=== PATIENT | female | born 1985 | race Caucasian/White ===

== ENCOUNTER 2017-05-24 20:30 | Emergency (ER) | payer BC, MEDICAID ==
[~2017-05-24] VITALS: Ht 165.1 cm; Wt 103.6 kg
[~2017-05-24 20:30] MED LIST: CIPRO 500MG TA500 MG PO; EPINEPHRINE IJ; VENTOLIN0.09 MG
[2017-05-24 21:30] LABS: EOS # 0.2 (0.04-0.40); EOS % 1.9 % (1.0-5.0); HEMATOCRIT 32.6 % (37.0-47.0); HEMOGLOBIN 10.7 g/dL (12.5-16.0); LYMPH# 2.7 (1.50-4.00); MEAN CELL VOLUME 94 fl (78-100); MEAN CORPUSCULAR HEMOGLOBIN 31 pg (27-31); MEAN CORPUSCULAR HGB CONC 33 g/dL (33-37); MEAN PLATELET VOLUME 11.6 fl (7.4-10.4); MONO # 0.7 (0.20-0.80); NEU # 4.8 (1.40-6.50); PLATELET COUNT 251 K/mm3 (130-400); RED BLOOD COUNT 3.46 M/mm3 (4.10-5.30); RED CELL DISTRIBUTION WIDTH 12.1 % (11.5-14.5); WHITE BLOOD COUNT 8.4 K/mm3 (4.8-10.8)
[2017-05-24 21:40] LABS: BUN/CREATININE RATIO 20.5 (6.0-26.0); CALCIUM 8.9 mg/dL (8.4-10.2); POTASSIUM 3.4 mmol/L (3.6-5.0)
[2017-05-24 21:42] LABS: D-DIMER 2.13 mg/L FEU (0.15-0.50)
[2017-05-24 23:11] VITALS: BP 175/98
[2017-05-25] MEDS ORDERED: ADVIL 200MG TA200 MG PO (09:36)
[2017-05-25] MEDS ORDERED: POTASSIUM CHLO20 ME3 PO (10:12)
[2017-05-25] MEDS ORDERED: HCTZ 25MG25 MG PO (10:12)
== END 2017-05-24 23:11 | disposition home or self-care (01) ==
LOC: ED 20:30
PROVIDERS: Family Medicine
DX: O12.05 Gestational edema, complicating the puerperium (principal); J10.1 Influenza due to other identified influenza virus with other respiratory manifestations; O98.53 Other viral diseases complicating the puerperium; O99.345 Other mental disorders complicating the puerperium; F41.9 Anxiety disorder, unspecified; O90.89 Other complications of the puerperium, not elsewhere classified; R00.1 Bradycardia, unspecified; O99.89 Other specified diseases and conditions complicating pregnancy, childbirth and the puerperium

== ENCOUNTER 2017-05-25 09:22 | Emergency (ER) | payer BC, MEDICAID ==
[~2017-05-25] VITALS: Wt 99.8 kg
[2017-05-25] MEDS ORDERED: ADVIL 200MG TA200 MG PO (09:36)
[2017-05-25] MEDS ORDERED: POTASSIUM CHLO20 ME3 PO (10:12)
[2017-05-25] MEDS ORDERED: HCTZ 25MG25 MG PO (10:12)
[2017-05-25 11:47] VITALS: BP 155/89
== END 2017-05-25 11:47 | disposition home or self-care (01) ==
LOC: ED 09:22
DX: O14.95 Unspecified pre-eclampsia, complicating the puerperium (principal)
CPT/HCPCS: J0595; J1940

== ENCOUNTER 2017-05-28 18:33 | Emergency (ER) | payer BC, MEDICAID ==
[~2017-05-28 18:33] MED LIST changes: +ADVIL 200MG TA200 MG PO; +HCTZ 25MG25 MG PO; +POTASSIUM CHLO20 ME3 PO
[2017-05-28 19:39] LABS: EOS # 0.1 (0.04-0.40); EOS % 0.7 % (1.0-5.0); HEMATOCRIT 39.9 % (37.0-47.0); HEMOGLOBIN 13.5 g/dL (12.5-16.0); LYMPH# 2.7 (1.50-4.00); MEAN CELL VOLUME 91 fl (78-100); MEAN CORPUSCULAR HEMOGLOBIN 31 pg (27-31); MEAN CORPUSCULAR HGB CONC 34 g/dL (33-37); MEAN PLATELET VOLUME 11.2 fl (7.4-10.4); MONO # 1.1 (0.20-0.80); NEU # 12.4 (1.40-6.50); PLATELET COUNT 395 K/mm3 (130-400); RED BLOOD COUNT 4.37 M/mm3 (4.10-5.30); RED CELL DISTRIBUTION WIDTH 11.9 % (11.5-14.5); WHITE BLOOD COUNT 16.4 K/mm3 (4.8-10.8)
[2017-05-28 19:42] LABS: ALBUMIN 3.9 g/dL (3.5-5.0); BUN/CREATININE RATIO 22.4 (6.0-26.0); CALCIUM 9.1 mg/dL (8.4-10.2); POTASSIUM 3.2 mmol/L (3.6-5.0); TOTAL BILIRUBIN 0.6 mg/dL (0.2-1.3); TOTAL PROTEIN 7.8 g/dL (6.3-8.2)
[2017-05-28 20:23] LABS: URINE APPEARANCE HAZY; URINE BILIRUBIN NEGATIVE (NEGATIVE); URINE BLOOD TRACE (NEGATIVE); URINE COLOR YELLOW; URINE GLUCOSE NEGATIVE (NEGATIVE); URINE KETONE 1+ (NEGATIVE); URINE LEUKOCYTE ESTERASE 1+ (NEGATIVE); URINE NITRATE NEGATIVE (NEGATIVE); URINE PROTEIN(semi-quant) TRACE mg/dL (NEGATIVE); URINE UROBILINOGEN NORMAL (NORMAL)
[2017-05-28 21:22] VITALS: BP 138/84
== END 2017-05-28 21:22 | disposition short-term general hospital (02) ==
LOC: ED 18:33
PROVIDERS: Nurse Practitioner
DX: O99.89 Other specified diseases and conditions complicating pregnancy, childbirth and the puerperium (principal); R10.2 Pelvic and perineal pain; R10.31 Right lower quadrant pain; R10.32 Left lower quadrant pain; Z87.442 Personal history of urinary calculi; Z88.0 Allergy status to penicillin; Z88.2 Allergy status to sulfonamides; Z91.030 Bee allergy status
CPT/HCPCS: J7030; Q9967

== ENCOUNTER → 2017-05-31 | Outpatient (CLI) | payer BC, MEDICAID ==
[2017-05-28 21:22] VITALS: BP 138/84
[2017-05-31 12:18] LABS: HEMATOCRIT 42.7 % (37.0-47.0); HEMOGLOBIN 13.9 g/dL (12.5-16.0); MEAN CELL VOLUME 93 fl (78-100); MEAN CORPUSCULAR HEMOGLOBIN 30 pg (27-31); MEAN CORPUSCULAR HGB CONC 33 g/dL (33-37); MEAN PLATELET VOLUME 11.3 fl (7.4-10.4); PLATELET COUNT 432 K/mm3 (130-400); RED BLOOD COUNT 4.59 M/mm3 (4.10-5.30); RED CELL DISTRIBUTION WIDTH 12.1 % (11.5-14.5); WHITE BLOOD COUNT 8.9 K/mm3 (4.8-10.8)
[2017-05-31 12:29] LABS: LYMPHOCYTE 39 % (20-51); MONOCYTE 4 % (3-10); NEUTROPHILS 57 % (42-75)
[2017-05-31 12:37] LABS: ALBUMIN 4.3 g/dL (3.5-5.0); BUN/CREATININE RATIO 27.5 (6.0-26.0); CALCIUM 9.8 mg/dL (8.4-10.2); POTASSIUM 3.9 mmol/L (3.6-5.0); TOTAL BILIRUBIN 0.9 mg/dL (0.2-1.3); TOTAL PROTEIN 8.9 g/dL (6.3-8.2)
== END ==
LOC: LAB 11:52
PROVIDERS: Family Medicine
DX: N80.9 Endometriosis, unspecified (principal); E87.6 Hypokalemia; R09.89 Other specified symptoms and signs involving the circulatory and respiratory systems; Z88.0 Allergy status to penicillin; Z88.2 Allergy status to sulfonamides

== ENCOUNTER → 2019-02-05 | Outpatient (CLI) | payer BC | LOC: LAB 14:13 | DX: F41.0 Panic disorder [episodic paroxysmal anxiety] (principal) ==

== ENCOUNTER 2019-03-29 22:41 | Emergency (ER) | payer BC ==
[~2019-03-29] VITALS: Ht 165.1 cm; Wt 106.8 kg
[2019-03-29] MEDS ORDERED: KLONOPIN 0.5MG0.5 MG PO (22:54)
[2019-03-29] MEDS ORDERED: LEXAPRO 10MG10 MG PO (22:54)
[2019-03-29] MEDS ORDERED: DEXAMETHASONE2 M1 PO (23:28)
[2019-03-29 23:38] VITALS: BP 140/92
[2019-03-29] MEDS ORDERED: JENCYCLA0.35 MG PO (23:45)
== END 2019-03-29 23:38 | disposition home or self-care (01) ==
LOC: ED 22:41
DX: H05.223 Edema of bilateral orbit (principal); T78.49XA Other allergy, initial encounter; Z79.1 Long term (current) use of non-steroidal anti-inflammatories (NSAID)

== ENCOUNTER → 2022-05-03 | Outpatient (CLI) | payer BC ==
[~2022-05-03] MED LIST changes: +DEXAMETHASONE2 M1 PO; +JENCYCLA0.35 MG PO; +KLONOPIN 0.5MG0.5 MG PO; +LEXAPRO 10MG10 MG PO
[2022-05-03 18:08] LABS: HEMATOCRIT 41.8 % (37.0-47.0); HEMOGLOBIN 13.6 g/dL (12.5-16.0); MEAN PLATELET VOLUME 10.2 fl (7.4-10.4); RED BLOOD COUNT 4.43 M/mm3 (4.10-5.30); RED CELL DISTRIBUTION WIDTH 11.9 % (11.5-14.5); WHITE BLOOD COUNT 9.2 K/mm3 (4.8-10.8)
[2022-05-03 18:32] LABS: ALBUMIN 4.2 g/dL (3.5-5.0); POTASSIUM 4.1 mmol/L (3.5-5.1)
[2022-05-03 18:33] LABS: CALCIUM 9.8 mg/dL (8.3-10.5)
[2022-05-03 18:35] LABS: TOTAL PROTEIN 7.7 g/dL (6.4-8.3)
[2022-05-03 18:36] LABS: TOTAL BILIRUBIN 0.6 mg/dL (0.2-1.2)
== END ==
LOC: AMSURD 08:55
PROVIDERS: Family Medicine
DX: Z00.00 Encounter for general adult medical examination without abnormal findings (principal); Z13.1 Encounter for screening for diabetes mellitus; Z13.220 Encounter for screening for lipoid disorders; J45.909 Unspecified asthma, uncomplicated; E66.9 Obesity, unspecified; Z82.49 Family history of ischemic heart disease and other diseases of the circulatory system

== ENCOUNTER → 2022-06-13 | Outpatient (CLI) | payer BC ==
[~2022-06-13] MED LIST changes: +SINGULAIR PO; +ZESTRIL5 M1 PO; +ZYRTEC10 M3 PO; +[UNRECOGNIZED DRUG - OTHER]
== END ==
LOC: RAD 15:58
DX: E04.1 Nontoxic single thyroid nodule (principal); R00.2 Palpitations; Z82.49 Family history of ischemic heart disease and other diseases of the circulatory system

== ENCOUNTER 2022-06-18 14:12 | Emergency (ER) | payer BC ==
[~2022-06-18] VITALS: Ht 165.1 cm; Wt 120.3 kg
[~2022-06-18 14:12] MED LIST changes: -SINGULAIR PO; -ZESTRIL5 M1 PO; -ZYRTEC10 M3 PO; -[UNRECOGNIZED DRUG - OTHER]
[2022-06-18 14:52] LABS: BASO # 0.04 K/mm3 (0.02-0.10); EOS # 0.13 K/mm3 (0.04-0.40); EOS % 1.5 % (1.0-5.0); HEMATOCRIT 38.9 % (37.0-47.0); HEMOGLOBIN 12.9 g/dL (12.5-16.0); LYMPH# 2.22 K/mm3 (1.50-4.00); MEAN CELL VOLUME 94 fl (78-100); MEAN CORPUSCULAR HEMOGLOBIN 31 pg (27-31); MEAN CORPUSCULAR HGB CONC 33 g/dL (33-37); MEAN PLATELET VOLUME 10.1 fl (7.4-10.4); MONO # 0.56 K/mm3 (0.20-0.80); NEU # 5.49 K/mm3 (1.40-6.50); PLATELET COUNT 321 K/mm3 (130-400); RED BLOOD COUNT 4.16 M/mm3 (4.10-5.30); RED CELL DISTRIBUTION WIDTH 11.7 % (11.5-14.5); WHITE BLOOD COUNT 8.4 K/mm3 (4.8-10.8)
[2022-06-18 14:58] LABS: ALBUMIN 4.1 g/dL (3.5-5.0); POTASSIUM 4.2 mmol/L (3.5-5.1); SODIUM 139 mmol/L (136-145)
[2022-06-18 14:59] LABS: CALCIUM 9.4 mg/dL (8.3-10.5)
[2022-06-18 15:00] LABS: GLUCOSE 101 mg/dL (65-105); TOTAL PROTEIN 7.7 g/dL (6.4-8.3)
[2022-06-18] MEDS ORDERED: SINGULAIR PO (15:00)
[2022-06-18 15:01] LABS: CARBON DIOXIDE 23 mmol/L (22-29)
[2022-06-18] MEDS ORDERED: ZYRTEC10 M3 PO (15:01)
[2022-06-18 15:02] LABS: TOTAL BILIRUBIN 0.4 mg/dL (0.2-1.2)
[2022-06-18] MEDS ORDERED: [UNRECOGNIZED DRUG - OTHER] (15:04)
[2022-06-18 15:05] LABS: AST-SGOT 17 U/L (5-34)
[2022-06-18 15:07] LABS: ALT/SGPT 23 U/L (0-55)
[2022-06-18 15:26] LABS: TROPONIN-I < 0.030 ng/mL (<0.030)
[2022-06-18] MEDS ORDERED: ZESTRIL5 M1 PO (16:04)
[2022-06-18 16:19] VITALS: BP 149/83
== END 2022-06-18 16:20 | disposition home or self-care (01) ==
LOC: ED 14:12
PROVIDERS: Physician Assistant
DX: I10 Essential (primary) hypertension (principal); F41.9 Anxiety disorder, unspecified; Z79.899 Other long term (current) drug therapy; Z28.310 Unvaccinated for COVID-19

== ENCOUNTER → 2023-07-26 | Outpatient (REF) | payer BC ==
[~2023-07-26] MED LIST changes: +SINGULAIR PO; +ZESTRIL5 M1 PO; +ZYRTEC10 M3 PO; +[UNRECOGNIZED DRUG - OTHER]
== END ==
LOC: LAB 18:52
DX: N39.0 Urinary tract infection, site not specified (principal)

== ENCOUNTER → 2024-05-02 | Outpatient (CLI) | payer BC ==
[2024-05-02 10:28] LABS: URINE APPEARANCE CLOUDY (CLEAR); URINE COLOR DARK YELLOW (YELLOW); URINE PROTEIN(semi-quant) TRACE (NEGATIVE)
[2024-05-02 10:29] LABS: URINE BILIRUBIN 1+ (NEGATIVE); URINE BLOOD NEGATIVE (NEGATIVE); URINE GLUCOSE NEGATIVE (NEGATIVE); URINE KETONE NEGATIVE (NEGATIVE); URINE LEUKOCYTE ESTERASE 1+ (NEGATIVE); URINE NITRATE POSITIVE (NEGATIVE); URINE WBC >50 /hpf (0-3)
== END ==
LOC: LAB 09:37
PROVIDERS: Family Medicine
DX: R39.9 Unspecified symptoms and signs involving the genitourinary system (principal)